=== PATIENT | female | born 1995 | race Caucasian/White ===

== ENCOUNTER 2016-11-23 16:09 | Emergency (ER) | payer OTHER ==
--- NOTE | 2016-11-23 19:43 | RAD ---
INDICATION: Head injury. COMPARISON: There are no prior studies available for comparison. TECHNIQUE: Contiguous axial sections of the brain were obtained from the skull base to the vertex without contrast. FINDINGS: The ventricles, cisterns and sulci are within normal limits. No significant focal abnormality or mass effect is seen. There is no evidence for hemorrhage. No significant focal osseous abnormality is seen. The visualized portion of the paranasal sinuses and mastoid air cells appear clear. IMPRESSION: NO EVIDENCE FOR ACUTE INTRACRANIAL ABNORMALITY.
[2016-11-23 20:13] LABS: Hematocrit 40 % (35-47); Hemoglobin 13.3 g/dl (12.0-16.0); Mean Corpuscular HGB Conc 34 g/dl (31-36); Mean Corpuscular Hemoglobin 30 pg (27-31); Mean Corpuscular Volume 91 fL (80-97); Mean Platelet Volume 9 um3 (7.4-10.4); Red Blood Count 4.38 10^6/ul (4.0-5.4); Red Cell Distribution Width 13 % (10.5-15); White Blood Count 8.9 10^3/ul (3.5-10.8)
[2016-11-23 20:40] LABS: ALT 26 U/L (7-52); AST 26 U/L (13-39); Albumin 4.4 g/dL (3.2-5.2); Alkaline Phosphatase 48 U/L (34-104); Anion Gap 8 mmol/L (2-11); BUN/Creatinine Ratio 18.3 (8-20); Blood Urea Nitrogen 15 mg/dL (6-24); CO2 Carbon Dioxide 24 mmol/L (22-32); Calcium 9.4 mg/dL (8.6-10.3); Chloride 105 mmol/L (101-111); EGFR African American 114.3 (>60); EGFR Non-African American 88.9 (>60); Globulin 3.2 g/dL (2-4); Glucose 85 mg/dL (70-100); Potassium 3.8 mmol/L (3.5-5.0); Sodium 137 mmol/L (133-145); Total Protein 7.6 g/dL (6.4-8.9)
[2016-11-23 21:47] VITALS: BP 91/45
--- NOTE | 2016-12-21 22:35 | ED ---
Ramirez Beltrán Benjamin, scribed for Raúl Avila MD on 11/23/16 at 1912 . Head Injury - HPI Summary HPI Summary: 21yo female had a syncopal episode today around 1200 hour after tripping and hitting her head. Pt states that she doesnt fully recall the episode but per witnesses, pt hit her head and was out for 20 seconds. Pt reports hitting her left temporal area of the head. Upon waking up, pt felt nauseous and dizzy. Pt has CHRISTIE after her injury but CHRISTIE has now resolved. Denies SOB, CP, Sz, or palpitations. Also denies weakness, numbness/tingling in one limb and denies any vaginal bleeding or discharge. Pt denies possibility of her being . LMP was 2 weeks ago and pt does not take control pills. Negative PMHx and FHx. surgical hx of appy. - History Of Current Complaint Chief Complaint: EDSyncope Stated Complaint: FALL/HIT HEAD Time Seen by Provider: 11/23/16 19:00 Hx Obtained From: Patient Mechanism Of Injury: Fall From A Standing Position Onset/Duration: Started Hours Ago, Traumatic, Resolved Severity Currently: None Pain Intensity: 0 Pain Scale Used: 0-10 Numeric Location of Head Injury: Temporal - left Associated Signs And Symptoms: LOC (Time In Secs./Mins/Hrs) - 20 secs, Nausea, Headache - Allergies/Home Medications Allergies/Adverse Reactions: Allergies Allergy/AdvReac Type Severity Reaction Status Date / Time No Known Allergies Allergy Verified 11/23/16 16:31 PMH/Surg Hx/FS Hx/Imm Hx Infectious Disease History: No Infectious Disease History: Denies: Traveled Outside the [place] in Last 30 Days - Family History Known Family History: Negative: Cardiac Disease, Hypertension, Diabetes - Social History Occupation: Student Lives: Dormitory/Roommates Alcohol Use: Occasionally Hx Substance Use: Yes Substance Use Type: Reports: Marijuana Hx Tobacco Use: No Smoking Status (MU): Never Smoked Tobacco Do You Chew or Dip Tobacco: No Have You Chewed or Dipped Tobacco in the LAST YEAR: No Have You Smoked in the Last Year: No Review of Systems Constitutional: Negative Eyes: Negative ENT: Negative Cardiovascular: Negative Respiratory: Negative Positive: Nausea Genitourinary: Negative Positive: no symptoms reported Musculoskeletal: Negative Skin: Negative Neurological: Other - dizziness Positive: Headache, Syncope Psychological: Normal All Other Systems Reviewed And Are Negative: Yes Physical Exam Triage Information Reviewed: Yes Vital Signs On Initial Exam: Initial Vitals Temp Pulse Resp BP Pulse Ox 98.3 F 72 20 122/49 98 11/23/16 16:27 11/23/16 16:27 11/23/16 16:27 11/23/16 16:27 11/23/16 16:27 Vital Signs Reviewed: Yes Appearance: Positive: Well-Appearing, No Pain Distress Skin: Positive: Warm, Skin Color Reflects Adequate Perfusion Head/Face: Positive: Normal Head/Face Inspection Eyes: Positive: Normal, EOMI, ROSITA ENT: Positive: Normal ENT inspection Neck: Positive: Supple, Nontender Respiratory/Lung Sounds: Positive: Clear to Auscultation, Breath Sounds Present Cardiovascular: Positive: RRR. Negative: Murmur Abdomen Description: Positive: Nontender Neurological: Positive: Sensory/Motor Intact, Alert, Oriented to Person Place, Time, CN Intact II-III Psychiatric: Positive: Normal - German Coma Scale Best Eye Response: 4 - Spontaneous Best Motor Response: 6 - Obeys Commands Best Verbal Response: 5 - Oriented Diagnostics - Vital Signs Vital Signs Temp Pulse Resp BP Pulse Ox 11/23/16 19:00 81 13 97 11/23/16 18:30 81 22 98 11/23/16 18:19 76 15 98 11/23/16 18:11 63 17 98 11/23/16 18:09 117/47 11/23/16 16:27 98.3 F 72 20 122/49 98 - Laboratory Lab Results: Lab Results 11/23/16 Range/Units 20:00 WBC 8.9 (3.5-10.8) 10^3/ul RBC 4.38 (4.0-5.4) 10^6/ul Hgb 13.3 (12.0-16.0) g/dl Hct 40 (35-47) % MCV 91 (80-97) fL MCH 30 (27-31) pg MCHC 34 (31-36) g/dl RDW 13 (10.5-15) % Plt Count 244 (150-450) 10^3/ul MPV 9 (7.4-10.4) um3 Neut % (Auto) 64.5 (38-83) % Lymph % (Auto) 28.1 (25-47) % Hitchcock % (Auto) 5.2 (1-9) % Eos % (Auto) 1.6 (0-6) % Baso % (Auto) 0.6 (0-2) % Absolute Neuts (auto) 5.8 (1.5-7.7) 10^3/ul Absolute Lymphs (auto) 2.5 (1.0-4.8) 10^3/ul Absolute Monos (auto) 0.5 (0-0.8) 10^3/ul Absolute Eos (auto) 0.1 (0-0.6) 10^3/ul Absolute Basos (auto) 0.1 (0-0.2) 10^3/ul Absolute Nucleated RBC 0 10^3/ul Nucleated RBC % 0 Result Diagrams: 11/23/16 20:00 11/23/16 20:00 Lab Statement: Any lab studies that have been ordered have been reviewed, and results considered in the medical decision making process. - CT CT Brain WO CT Interpretation: No Acute Changes CT Interpretation Completed By: Radiologist - ED Physician reviewed the radiology report and agrees with the finding. - EKG 2104. Cardiac Rate: NL - 60bpm EKG Rhythm: Sinus Rhythm EKG Interpretation: NO STEMI Re-Evaluation - Re-Evaluation First Eval Re-Evaluation Time: 21:09 Change: Improved Comment: the patient is feeling comfortable and woul dlike to go home at this point. Head Injury Course/Dx Course Of Treatment: Reviewed pt's list of medication and allergies. Blood pressure noted. 21 yrold female who fell due to slipping and hit her head, then felt nauseated and sat up and passed out briefly with no reported seizure activity. - Diagnoses Provider Diagnoses: Closed head injury, Syncope, vasovagal Discharge - Discharge Plan Condition: Good Disposition: HOME Patient Education Materials: Head Injury (ED), Syncope (ED) [facility] The documentation as recorded by the Ramirez quintero Benjamin accurately reflects the service I personally performed and the decisions made by me, Raúl Avila MD.
== END 2016-11-23 21:46 | disposition home or self-care (01) ==
LOC: ED 16:09
DX: S09.90XA Unspecified injury of head, initial encounter (principal); R55 Syncope and collapse; R11.0 Nausea; R51 Headache; R42 Dizziness and giddiness; W19.XXXA Unspecified fall, initial encounter; Y93.9 Activity, unspecified; Y92.9 Unspecified place or not applicable
CPT/HCPCS: 36415; 70450; 80053; 83605; 84702; 85025; 93005; 99282